=== PATIENT | female | born 1995 | race Caucasian/White ===

== ENCOUNTER 2019-10-08 22:40 | Emergency (ER) | payer OTHER ==
[2019-10-08 23:53] LABS: BASOPHILS % (AUTO) 0.3 %; EOSINOPHILS % (AUTO) 0.1 %; HGB - HEMOGLOBIN 12.7 g/dL (12.0-16.0); LYMPHOCYTES # (AUTO) 1.7 10^3/uL (1.5-3.5); LYMPHOCYTES % (AUTO) 12.3 %; MEAN CORPUSCULAR HEMOGLOBIN 30.1 pg (27.0-31.0); MEAN CORPUSCULAR VOLUME 88.6 fL (81.0-99.0); MEAN PLATELET VOLUME 8.5 fL (7.9-10.8); MONOCYTES # (AUTO) 0.6 10^3/uL (0.0-1.0); MONOCYTES % (AUTO) 4.8 %; NEUTROPHILS % (AUTO) 81.9 %; PLT - PLATELET COUNT 266 10^3/uL (130-450); RED BLOOD COUNT 4.22 10^6/uL (4.20-5.40); RED CELL DISTRIBUTION WIDTH 13.2 % (12.0-15.0); WHITE BLOOD COUNT 13.4 x10^3/uL (4.8-10.8)
--- NOTE | 2019-10-08 23:56 | ED Physician Documentation ---
History of Present Illness - Stated complaint Stated Complaint: N/V - Chief complaint Chief Complaint: Abd Pain - Additonal information Additional information: This is a 23-year-old female who is at 16 weeks who presents with nausea and vomiting. Patient states that she has had some nausea and vomiting during this , but it got better in the second trimester. Today she was feeling overall well in the morning, she had a a ultrasound which showed reportedly normal anatomy and movement as well as a normal heart rate earlier today, she went home and while at home she began developing nausea as well as a headache which was mild and bifrontal, the headache became more severe and radiated towards her back of her head, and she has had multiple episodes of vomiting. She states she does have some epigastric discomfort, but only when she is vomiting. At rest she has no abdominal pain at all. She denies any focal weakness or numbness, No confusion, no speech changes, no facial droop. No diarrhea. After the vomiting she did have some slight blurriness of her vision, but this is now resolved. She denies any double vision, visual cuts, or flashers. She states the headache began gradually and then ramped up, is cu rrently mild in severity. She states it feels like she was hit by the stomach flu. She has not had diarrhea. No fever, no neck stiffness. No sick contacts. Review of Systems Constitutional: denies: Fever Eyes: denies: Loss of vision Nose: denies: Rhinorrhea / runny nose Throat: denies: Sore throat Cardiac: denies: Chest pain / pressure Respiratory: denies: Dyspnea GI: reports: Nausea, Vomiting : denies: Dysuria Neurologic: denies: Focal weakness, Numbness, Difficulty speaking PD PAST MEDICAL HISTORY - Past Medical History Past Medical History: No - Past Surgical History Past Surgical History: Yes General: Cholecystectomy - Present Medications Home Medications: Ambulatory Orders Medication Instructions Recorded Confirmed Ondansetron Odt [Zofran] 4 mg TL Q6H PRN #7 tablet 10/09/19 - Allergies Allergies/Adverse Reactions: Allergies Allergy/AdvReac Type Severity Reaction Status Date / Time No Known Drug Allergies Allergy Verified 10/08/19 22:48 - Social History Does the pt smoke?: No Smoking Status: Never smoker Does the pt drink ETOH?: No Does the pt have substance abuse?: No - Immunizations Immunizations are current?: Yes - POLST Patient has POLST: No PD ED PE NORMAL - Vitals Vital signs reviewed: Yes - General General: Alert and oriented X 3, No acute distress - HEENT HEENT: Atraumatic, PERRL, EOMI, Pharynx benign - Neck Neck: Supple, no meningeal sign - Cardiac Cardiac: No murmur, Other (Tachycardic, regular rhythm) - Respiratory Respiratory: No respiratory distress, Clear bilaterally - Abdomen Abdomen: Normal bowel sounds, Soft, Non tender, Non distended - Derm Derm: Warm and dry - Extremities Extremities: No deformity - Neuro Neuro: Alert and oriented X 3, 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 Funduscopic exam shows crisp optic disks, no papilledema.) - Psych Psych: Normal mood, Normal affect Results - Vitals Vitals: Vital Signs - 24 hr 10/08/19 10/09/19 10/09/19 22:46 00:18 00:47 Heart Rate 134 H 110 H 108 H Respiratory 19 20 16 Rate Blood Pressure 141/86 H 142/86 H 111/62 O2 Saturation 100 100 100 10/09/19 01:55 Heart Rate 100 Respiratory 16 Rate Blood Pressure 129/73 O2 Saturation 100 Oxygen O2 Source Room air - Labs Labs: Laboratory Tests 10/08/19 10/08/19 10/09/19 23:45 23:45 00:12 WBC 13.4 H RBC 4.22 Hgb 12.7 Hct 37.4 MCV 88.6 MCH 30.1 MCHC 34.0 RDW 13.2 Plt Count 266 MPV 8.5 Neut # (Auto) 11.0 H Lymph # (Auto) 1.7 [place] # (Auto) 0.6 Eos # (Auto) 0.0 Baso # (Auto) 0.0 Absolute Nucleated RBC 0.00 Nucleated RBC % 0.0 Sodium 139 Potassium 3.6 Chloride 104 Carbon Dioxide 25 Anion Gap 10.0 BUN 5 L Creatinine 0.5 Estimated GFR (MDRD) 150 Glucose 109 H Calcium 8.9 Total Bilirubin 0.8 AST 19 ALT 24 Alkaline Phosphatase 53 Total Protein 7.0 Albumin 3.7 Globulin 3.3 Albumin/Globulin Ratio 1.1 Lipase 25 Urine Color YELLOW Urine Clarity CLEAR Urine pH 7.5 Ur Specific [place] 1.020 Urine Protein TRACE Urine Glucose (UA) NEGATIVE Urine Ketones >=80 H Urine Occult Blood NEGATIVE Urine Nitrite NEGATIVE Urine Bilirubin NEGATIVE Urine Urobilinogen 0.2 (NORMAL) Ur Leukocyte Esterase NEGATIVE Ur Microscopic Review NOT INDICATED Urine Culture Comments NOT INDICATED PD MEDICAL DECISION MAKING - ED course Complexity details: considered differential (Gastroenteritis, hyperemesis gravidarum, gastritis, viral syndrome, intracranial hemorrhage, central venous thrombosis) ED course: On arrival patient is vomiting, But nontoxic-appearing. She is mildly tachycardic. She has a completely soft and nontender abdomen, and her neurologic exam is also completely normal. IV was inserted, labs were drawn, patient was given Reglan but had persistent nausea, she was given Zofran which completely resolved her symptoms. On repeat evaluation she was feeling well, able to tolerate p.o. fluids, had no headache, continue to have no neurologic symptoms, and had no further nausea or vomiting. Labs show a nonspecific mild leukocytosis which is within the realm of normal during , otherwise unremarkable. UA shows no signs of infection. Initially given her headache and vomiting I did consider central venous thrombosis or intracranial pathology, but given her complete resolution of her symptoms with only antiemetics, as well as her normal neurologic exam, and her funduscopic exam showing no papilledema, I think this is very unlikely at this time. Gastroenteritis is possible, however patient has not had diarrhea. I discussed the diagnostic uncertainty and the importance of returning to the emergency department if she has recurrent or new concerning symptoms, specifically any severe headache or neurologic symptoms, or abdominal pain. I also recommended very close outpatient follow-up. Patient agreed with this plan, and was discharged in the care of her Departure - Departure Disposition: 01 Home, Self Care Clinical Impression: Vomiting Condition: Good Follow-Up: Wendy Thomas ARNP [Primary Care Provider] - Within 1 week Prescriptions: Ondansetron Odt [Zofran] 4 mg TL Q6H PRN #7 tablet PRN Reason: Nausea / Vomiting Comments: You were seen today for vomiting as well as a headache. I am glad that you are feeling better. If you have persistent vomiting despite the Zofran, or if you develop a severe headache, or any other concerning symptoms such as weakness, numbness, vision changes, confusion, seizure, please return to the emergency department. Please also follow-up with your OB or primary care provider.
[2019-10-08] MEDS ORDERED: METOCLOPRAMIDE 10 MG/2 ML VIAL IVP STA (23:57)
[2019-10-09] MEDS ORDERED: SODIUM CHLORIDE 0.9% 1,000 ML IV ONE (00:04)
[2019-10-09 00:05] LABS: ALBUMIN 3.7 g/dL (3.2-5.5); ALBUMIN/GLOBULIN RATIO 1.1 (1.0-2.2); BILIRUBIN,TOTAL 0.8 mg/dL (0.2-1.0); CALCIUM 8.9 mg/dL (8.5-10.3); CREATININE 0.5 mg/dL (0.4-1.0)
[2019-10-09] MEDS ORDERED: ONDANSETRON 4 MG/2 ML VIAL IVP STA (00:18)
[2019-10-09 00:30] LABS: GLUCOSE, URINE (UA) NEGATIVE (NEGATIVE); KETONES,URINE (UA) >=80 mg/dL (NEGATIVE); LEUKOCYTE ESTERASE, URINE NEGATIVE (NEGATIVE); NITRITE,URINE NEGATIVE (NEGATIVE); OCCULT BLOOD,URINE NEGATIVE (NEGATIVE); PH,URINE 7.5 PH (5.0-7.5); PROTEIN,URINE TRACE mg/dL (NEGATIVE); UROBILINOGEN,URINE 0.2 (NORMAL) E.U./dL (NORMAL)
[2019-10-09 00:32] LABS: CLARITY,URINE CLEAR (CLEAR)
[2019-10-09 00:35] LABS: BILIRUBIN,URINE NEGATIVE (NEGATIVE); ICTOTEST,URINE NEGATIVE
[2019-10-09 01:58] VITALS: BP 129/73
== END 2019-10-09 02:00 | disposition home or self-care (01) ==
LOC: ED 22:40
DX: O21.8 Other vomiting complicating pregnancy (principal); O99.89 Other specified diseases and conditions complicating pregnancy, childbirth and the puerperium; R51 Headache; Z3A.16 16 weeks gestation of pregnancy
CPT/HCPCS: 36415; 80053; 81003; 83690; 85025; 96361; 96374; 96375; 99282; 99284; J2765; 81001; 87086

== ENCOUNTER 2020-01-28 18:48 | Emergency (ER) | payer OTHER ==
--- NOTE | 2020-01-28 19:14 | ED Physician Documentation ---
History of Present Illness - Stated complaint Stated Complaint: FEVER, TIGHTNESS IN CHEST - Chief complaint Chief Complaint: General - History obtained from History obtained from: Patient - History of Present Illness Timing: Today Pain level now: 0 Improved by: nothing Worsened by: no exacerbating factors - Additonal information Additional information: patient is 32 weeks , c/o chills and mild, intermittent chest pressure since this morning. Tmax at home was 99.2 Review of Systems Constitutional: reports: Chills. 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 : None HEENT: None Psych: Depression Musculoskeletal: None Derm: None - Past Surgical History Past Surgical History: Yes General: Cholecystectomy - Present Medications Home Medications: Ambulatory Orders Medication Instructions Recorded Confirmed Ondansetron Odt [Zofran] 4 mg TL Q6H PRN #7 tablet 10/09/19 - Allergies Allergies/Adverse Reactions: Allergies Allergy/AdvReac Type Severity Reaction Status Date / Time No Known Drug Allergies Allergy Verified 10/08/19 22:48 - Social History Does the pt smoke?: No Smoking Status: Never smoker Does the pt drink ETOH?: No Does the pt have substance abuse?: No - Immunizations Immunizations are current?: Yes - POLST Patient has POLST: No PD ED PE NORMAL - Vitals Vital signs reviewed: Yes - General General: Alert and oriented X 3, No acute distress, Well developed/nourished - HEENT HEENT: Moist mucous membranes, Other (mild posterior oropharyngeal erythema) - Neck Neck: Supple, no meningeal sign - Cardiac Cardiac: RRR, No murmur - Respiratory Respiratory: No respiratory distress, Clear bilaterally - Abdomen Abdomen: Soft, Non tender Results - Vitals Vitals: Vital Signs - 24 hr 01/28/20 01/28/20 01/28/20 18:50 19:05 21:19 Temperature 37.3 C 37.2 C 37.3 C Heart Rate 123 H 116 H 103 H Respiratory 18 22 18 Rate Blood Pressure 125/71 124/81 H 144/93 H O2 Saturation 98 99 98 Oxygen O2 Source Room air - Labs Labs: Laboratory Tests 01/28/20 01/28/20 19:45 20:15 Influenza A (Rapid) Negative Influenza B (Rapid) Negative Group A Strep Rapid Negative PD MEDICAL DECISION MAKING - ED course Complexity details: reviewed results, re-evaluated patient, considered di fferential, d/w patient Departure - Departure Disposition: 01 Home, Self Care Clinical Impression: Qualifiers: Weeks of gestation: 32 weeks Qualified Code(s): Z3A.32 - 32 weeks gestation of Fatigue Qualifiers: Fatigue type: unspecified Qualified Code(s): R53.83 - Other fatigue Condition: Good Instructions: ED Symptoms No Dx Follow-Up: Wendy Thomas, [facility]ICKLAYER'S ASSISTANT [Primary Care Provider] - Forms: Activity restrictions Discharge Date/Time: 01/28/20 21:19
[2020-01-28 20:03] LABS: RAPID STREP SCREEN Negative (Negative)
[2020-01-28 21:19] VITALS: BP 144/93
== END 2020-01-28 21:19 | disposition home or self-care (01) ==
LOC: ED 18:48
DX: O99.89 Other specified diseases and conditions complicating pregnancy, childbirth and the puerperium (principal); R53.83 Other fatigue; Z3A.32 32 weeks gestation of pregnancy
CPT/HCPCS: 81599; 87070; 87077; 87275; 87276; 87430; 99283; 99284

== ENCOUNTER 2020-02-20 08:00 | Outpatient (CLI) | payer OTHER | END 2020-02-20 23:59 | disposition home or self-care (01) | LOC: LAB.R 08:00 | PROVIDERS: ATTEND Advanced Practice Midwife | DX: Z34.00 Encounter for supervision of normal first pregnancy, unspecified trimester (principal) | CPT/HCPCS: 87797 ==

== ENCOUNTER 2020-02-20 08:00 | Outpatient (CLI) | payer OTHER ==
[2020-02-20 19:52] LABS: CANDIDA GROUP DNA POSITIVE (NEGATIVE); CANDIDA KRUSEI DNA NEGATIVE (NEGATIVE); TRICHOMONAS VAGINALIS DNA NEGATIVE (NEGATIVE)
[2020-02-20 20:59] LABS: TRICHOMONAS VAGINALIS DNA NEGATIVE (NEGATIVE)
== END 2020-02-20 23:59 | disposition home or self-care (01) ==
LOC: LAB.R 08:00
PROVIDERS: ATTEND Advanced Practice Midwife
DX: Z34.00 Encounter for supervision of normal first pregnancy, unspecified trimester (principal)
CPT/HCPCS: 87491; 87591; 87661; 87797; 87801

== ENCOUNTER 2020-03-17 08:13 | Inpatient (IN) | payer OTHER ==
[2020-03-17] MEDS ORDERED: CALCIUM CARBONATE CHEW 500 MG TABLET PO PRN (09:42)
[2020-03-17] MEDS ORDERED: SODIUM CHLORIDE FLUSH 0.9% 10 ML SYRINGE IVP PRN ×2 (09:48→10:08)
[2020-03-17] MEDS ORDERED: OXYTOCIN/SODIUM CHLORIDE 500 ML IV PRN (09:48)
[2020-03-17] MEDS ORDERED: ACETAMINOPHEN 325 MG TABLET PO PRN (09:48)
[2020-03-17] MEDS ORDERED: ONDANSETRON 4 MG/2 ML VIAL IVP PRN (09:48)
[2020-03-17] MEDS ORDERED: AMPICILLIN 2 GM in SODIUM CHLORIDE 0.9% MINIBAG 100 ML IV ONE (09:48)
[2020-03-17] MEDS ORDERED: fentaNYL 100 MCG/2 ML VIAL IVP PRN (09:48)
[2020-03-17] MEDS ORDERED: ONDANSETRON ODT 4 MG TABLET TL PRN (09:48)
[2020-03-17] MEDS ORDERED: miSOPROStoL 200 MCG TABLET PR ONE (09:48)
--- NOTE | 2020-03-17 09:58 | HISTORY & PHYSICAL EXAMINATION ---
Admit History - Visit Reason Visit Reason: Other (24yo G1 at 39 weeks by first trimester scan presents for elective IOL. Denies fluid leak, bleeding, contractions, reports normal activity. No n/v/f/c or dysuria.) - : 1 Parity: 0 Premature: 0 Ectopic: 0 : 0 Care: positive: [facility] Risk/History: positive: Other (H/O cholycystectomy 2017) Complications This : positive: Other (Morbid obesity) Smoking Status: Never smoker - Mother's Labs Mother's Blood Type: positive: A Mother's RH: positive: Positive GBS: positive: Group B Strep Positive Rubella Status: positive: Immune (RPR/HIV/HepB&C NR Varicella immune GC/chlam neg PAP LSIL Quad screen neg Tdap 01/15/2020) Meds/Allgy - Home Medications Home Medications: Ambulatory Orders Medication Instructions Recorded Confirmed Ondansetron Odt [Zofran] 4 mg TL Q6H PRN #7 tablet 10/09/19 - Allergies Allergies/Adverse Reactions: Allergies Allergy/AdvReac Type Severity Reaction Status Date / Time No Known Drug Allergies Allergy Verified 10/08/19 22:48 Physical - Abdominal Exam Vital Signs: VSS afeb Contraction Frequency (min/apart): Rare, mild Contraction Intensity: positive: Mild Uterine Resting Tone: positive: Soft - Monitoring Heart Rate Baseline: 140's, +accels Strip Review: positive: Category I - Presentation Presentation: positive: Vertex (by scan) - Vaginal Exam Membranes: positive: Membranes intact Dilation (in cm): closed Effacement (%): 30% Station: positive: -2 Cervical Position: positive: Posterior - Speculum Exam Speculum Exam Performed: positive: No Plan for Labor - Plan For Labor Plan for Labor: 24yo G1 at 39 weeks admitted for IOL. complicated by morbid obesity Plan CBC, T&S Ampicillin for GBS+ Miso q4h 50mcg PO, place balloon when cervix allows Planning epidural Exam - Exam General: Alert, Oriented x3, Cooperative Lungs: Clear to auscultation, Normal air movement Cardiovascular: Regular rate, No murmurs Abdomen: Soft, No tenderness (obese, gravid) Extremities: Other (1+ bipedal edema) Skin: No rashes Neurological: Normal gait, Normal speech Psych/Mental Status: Mental status NL
[2020-03-17] MEDS ORDERED: OXYTOCIN/SODIUM CHLORIDE 500 ML IV SCH (10:00)
[2020-03-17 10:03] LABS: BASOPHILS % (AUTO) 0.3 %; EOSINOPHILS % (AUTO) 0.4 %; HGB - HEMOGLOBIN 12.2 g/dL (12.0-16.0); LYMPHOCYTES # (AUTO) 1.6 10^3/uL (1.5-3.5); LYMPHOCYTES % (AUTO) 22.1 %; MEAN CORPUSCULAR HEMOGLOBIN 28.8 pg (27.0-31.0); MEAN CORPUSCULAR HGB CONC 32.5 g/dL (32.0-36.0); MEAN CORPUSCULAR VOLUME 88.7 fL (81.0-99.0); MEAN PLATELET VOLUME 8.8 fL (7.9-10.8); MONOCYTES # (AUTO) 0.5 10^3/uL (0.0-1.0); MONOCYTES % (AUTO) 7.3 %; NEUTROPHILS % (AUTO) 69.3 %; PLT - PLATELET COUNT 215 10^3/uL (130-450); RED BLOOD COUNT 4.23 10^6/uL (4.20-5.40); RED CELL DISTRIBUTION WIDTH 15.6 % (12.0-15.0); WHITE BLOOD COUNT 7.1 x10^3/uL (4.8-10.8)
[2020-03-17] MEDS: miSOPROStoL 100 MCG TABLET PO SCH ×3 (10:03→21:27)
--- NOTE | 2020-03-17 10:12 | DISCHARGE SUMMARY ---
"Discharge Summary Admit Date: 03/17/20 Discharging Provider: Renee Doll Code Status: Attempt Resuscitation Condition at Discharge: Good Discharge Disposition: 01 Home, Self Care - DIAGNOSES Admission Diagnoses: at 39 weeks - HPI History of Present Illness: 24yo G1 at 39 weeks by first trimester scan presentd for elective IOL. Denies fluid leak, bleeding, contractions, reports normal activity. No n/v/f/c or dysuria. - CONSULTS | PROCEDURES Procedures: Primary LTCS - HOSPITAL COURSE Hospital Course: Her cervix was unfavorable as expected, miso for ripening was initiated. After the third dose, a cervical balloon was placed; subsequently SROM was noted with copious clear fluid. Contractions increased in intensity; an epidural was placed. Her contractions began to space and pitocin was started. She progressed to 8cm, however the cervix became edematous and there was no further progress, so a primary LTCS was performed. She was delivered of a 3436gm male infant apgars 6/9 on 03/18. The procedure was uncomplicated, EBL 400. Her postop course was complicated only by constipation which was treated with several agents successfully, and candidal rash under pannus near the incision which was successfully treated with clotrimazole cream and by the folds of skin. She received IV iron for her anemia. She required assistance with and was doing well on DC. She is planning Nexplanon for contraception and will f/u in 1-2 weeks. - ALLERGIES Allergies/Adverse Reactions: Allergies Allergy/AdvReac Type Severity Reaction Status Date / Time No Known Drug Allergies Allergy Verified 10/08/19 22:48 - MEDICATIONS Home Medications: Ambulatory Orders Medication Instructions Recorded Confirmed Ondansetron Odt [Zofran Odt] 4 mg TL Q6H PRN #7 tablet 10/09/19 Acetaminophen [Tylenol] 650 mg PO Q6H #50 tablet 03/20/20 Calcium Carbonate [Tums (Calcium 500 mg PO Q6HR PRN #120 tablet 03/20/20 Carbonate 500mg)] Clotrimazole/Betamethasone Crm 1 applic TOP TID #2 tube 03/20/20 [Lotrisone Cream] FLUoxetine [PROzac] 20 mg PO HS #60 capsule 03/20/20 Famotidine [Pepcid] 20 mg PO BID #30 tablet 03/20/20 Ibuprofen [Motrin] 600 mg PO Q6H #40 tablet 03/20/20 oxyCODONE [Roxicodone] 5 mg PO Q4HR PRN #30 tablet 03/20/20 - PHYSICAL EXAM AT DISCHARGE General Appearance: positive: No acute distress, Alert Respiratory: positive: No respiratory distress Abdomen: positive: Non-tender, No distention (Fundus firm, non-tender, below umb ilicus. Rash as noted previously much improved) Extremities: positive: Pedal edema (trace) Neurologic/Psychiatric: positive: Oriented x3, Mood/affect nml - LABS Result Diagrams: 03/19/20 06:15"
[2020-03-17] MEDS ORDERED: LACTATED RINGERS 1,000 ML IV SCH (11:00)
[2020-03-17] MEDS: FAMOTIDINE 20 MG TABLET PO SCH ×2 (12:06→21:12)
--- NOTE | 2020-03-17 13:59 | PROVIDER PROGRESS NOTE ---
Subjective - Prog Note Date Prog Note Date: 03/17/20 Prog Note Time: 13:57 - Subjective Subjective: Feeling cramping w contractions. No pain or significant pressure. VSS afeb Category 1 tracing Exam deferred Contractions <1 min duration, mild, q2-5 A/P Stable. Continue with miso #2. Start ampicillin Objective - Lab Results Fish Bones: 03/17/20 09:45 Other Labs: Lab Results x24hrs 03/17/20 03/17/20 Range/Units 09:45 09:45 WBC 7.1 (4.8-10.8) x10^3/uL RBC 4.23 (4.20-5.40) 10^6/uL Hgb 12.2 (12.0-16.0) g/dL Hct 37.5 (37.0-47.0) % MCV 88.7 (81.0-99.0) fL MCH 28.8 (27.0-31.0) pg MCHC 32.5 (32.0-36.0) g/dL RDW 15.6 H (12.0-15.0) % Plt Count 215 (130-450) 10^3/uL MPV 8.8 (7.9-10.8) fL Neut # (Auto) 5.0 (1.5-6.6) 10^3/uL Lymph # (Auto) 1.6 (1.5-3.5) 10^3/uL [place] # (Auto) 0.5 (0.0-1.0) 10^3/uL Eos # (Auto) 0.0 (0.0-0.7) 10^3/uL Baso # (Auto) 0.0 (0.0-0.1) 10^3/uL Absolute Nucleated RBC 0.00 x10^3/uL Nucleated RBC % 0.0 /100WBC Blood Type A POSITIVE Antibody Screen NEGATIVE
[2020-03-17] MEDS: LACTATED RINGERS 1,000 ML IV SCH (14:16)
[2020-03-17] MEDS: SODIUM CHLORIDE FLUSH 0.9% 10 ML SYRINGE IVP SCH (14:16)
[2020-03-17] MEDS ORDERED: SODIUM CHLORIDE FLUSH 0.9% 10 ML SYRINGE IVP SCH (17:00)
[2020-03-17] MEDS: AMPICILLIN 1 GM in SODIUM CHLORIDE 0.9% MINIBAG 100 ML IV SCH ×2 (18:07→22:36)
[2020-03-17] MEDS: FLUoxetine 10 MG CAPSULE PO SCH (21:13)
--- NOTE | 2020-03-17 23:14 | PROVIDER PROGRESS NOTE ---
Subjective - Prog Note Date Prog Note Date: 03/17/20 Prog Note Time: 23:10 - Subjective Subjective: Feeling contractions more since miso #3 placed. Wants to try for balloon placement Contractions q2-5 VSS afeb Category 1 VE/ FT/50%/-2 Cook catheter placed. 60cc in uterine balloon, 40cc in vaginal balloon. Immediately after placement, SROM of copious clear fluid Bedside scan shows head well applied to cervix. Single variable decel following rupture with spontaneous recovery; tracing category 1 after that. A/P Will start pitocin when able (4hrs after last miso) Objective - Vital Signs/Intake & Output Intake & Output: Intake & Output 03/14/20 03/15/20 03/16/20 03/17/20 23:59 23:59 23:59 23:59 Intake Total 200 Balance 200 - Lab Results Fish Bones: 03/17/20 09:45 Other Labs: Lab Results x24hrs 03/17/20 03/17/20 Range/Units 09:45 09:45 WBC 7.1 (4.8-10.8) x10^3/uL RBC 4.23 (4.20-5.40) 10^6/uL Hgb 12.2 (12.0-16.0) g/dL Hct 37.5 (37.0-47.0) % MCV 88.7 (81.0-99.0) fL MCH 28.8 (27.0-31.0) pg MCHC 32.5 (32.0-36.0) g/dL RDW 15.6 H (12.0-15.0) % Plt Count 215 (130-450) 10^3/uL MPV 8.8 (7.9-10.8) fL Neut # (Auto) 5.0 (1.5-6.6) 10^3/uL Lymph # (Auto) 1.6 (1.5-3.5) 10^3/uL [place] # (Auto) 0.5 (0.0-1.0) 10^3/uL Eos # (Auto) 0.0 (0.0-0.7) 10^3/uL Baso # (Auto) 0.0 (0.0-0.1) 10^3/uL Absolute Nucleated RBC 0.00 x10^3/uL Nucleated RBC % 0.0 /100WBC Blood Type A POSITIVE Antibody Screen NEGATIVE
[2020-03-17] MEDS ORDERED: ROPIVACAINE 0.2% 200 MG/100 ML BAG EP ONE (23:36)
[2020-03-18] MEDS ORDERED: LIDOCAINE-MPF 1% 30 ML VIAL ONE (00:04)
[2020-03-18] MEDS ORDERED: NALOXONE 0.4 MG/ML VIAL IVP PRN (00:50)
[2020-03-18] MEDS ORDERED: ONDANSETRON 4 MG/2 ML VIAL IVP PRN (00:50)
[2020-03-18] MEDS ORDERED: LACTATED RINGERS 500 ML IV ONE (00:50)
[2020-03-18] MEDS ORDERED: ePHEDrine 50 MG/ML VIAL IVP PRN (00:50)
[2020-03-18] MEDS ORDERED: NALBUPHINE 10 MG/ML AMP IVP PRN (00:50)
[2020-03-18] MEDS ORDERED: ROPIVACAINE 0.2% 200 MG/100 ML BAG EP PRN (00:50)
[2020-03-18] MEDS ORDERED: diphenhydrAMINE INJ 50 MG/ML VIAL IVP PRN (00:50)
--- NOTE | 2020-03-18 00:50 | ANESTHESIA ---
Pre-Anesthesia VS, & Labs - Diagnosis active labor IUP - Procedure KATARINA Height 5 ft 1 in Weight (kg) 116.12 kg Body Mass Index 49.2 - Is Patient ?: Yes - Lab Results Current Lab Results: Laboratory Tests 03/17/20 09:45: Blood Type A POSITIVE, Antibody Screen NEGATIVE 03/17/20 09:45: WBC 7.1, RBC 4.23, Hgb 12.2, Hct 37.5, MCV 88.7, MCH 28.8, MCHC 32.5, RDW 15.6 H, Plt Count 215, MPV 8.8, Neut # (Auto) 5.0, Lymph # (Auto) 1.6, [place] # (Auto) 0.5, Eos # (Auto) 0.0, Baso # (Auto) 0.0, Absolute Nucleated RBC 0.00, Nucleated RBC % 0.0 Fish Bones: 03/17/20 09:45 Home Medications and Allergies Active Medications Acetaminophen (Tylenol) 650 mg PO Q6H PRN PRN Reason: Pain or Fever Calcium Carbonate/Glycine (Tums) 500 mg PO Q6HR PRN PRN Reason: Heartburn Famotidine (Pepcid) 20 mg PO BID [facility] Last Admin: 03/17/20 21:12 Dose: 20 mg Fentanyl (Fentanyl) 50 mcg IVP Q1H PRN PRN Reason: PAIN Last Admin: 03/17/20 22:29 Dose: 50 mcg Fluoxetine HCl (Prozac) 20 mg PO HS [facility] Last Admin: 03/17/20 21:13 Dose: 20 mg Ampicillin Sodium 1 gm/ Sodium (Chloride) 100 mls @ 200 mls/hr IV Q4H [facility] Last Infusion: 03/17/20 22:50 Dose: Infused Lactated Ringer's (Lr) 1,000 mls @ 100 mls/hr IV .Q10H [facility] Last Admin: 03/17/20 14:16 Dose: 100 mls/hr Oxytocin/Sodium Chloride (Pitocin/Sodium Chloride) 500 mls @ 2 mls/hr IV TITR [place]O; Protocol Oxytocin/Sodium Chloride (Pitocin/Sodium Chloride) 500 mls @ 999 mls/hr IV PRN PRN; Protocol PRN Reason: POST- HEMORR PREVENTION Misoprostol (Cytotec) 50 mcg PO Q4HR [facility] Last Admin: 03/17/20 21:27 Dose: 50 mcg Ondansetron HCl (Zofran Inj) 4 mg IVP Q4HR PRN PRN Reason: Nausea / Vomiting Last Admin: 03/17/20 11:12 Dose: 4 mg Ondansetron HCl (Zofran Odt) 4 mg TL Q4HR PRN PRN Reason: Nausea / Vomiting Sodium Chloride (Normal Saline Flush 0.9%) 10 ml IVP 0100,0900,1700 [facility] Last Admin: 03/17/20 14:16 Dose: 10 ml Sodium Chloride (Normal Saline Flush 0.9%) 10 ml IVP PRN PRN PRN Reason: NEEDED PER PROVIDER ORDERS Allergies/Adverse Reactions: Allergies Allergy/AdvReac Type Severity Reaction Status Date / Time No Known Drug Allergies Allergy Verified 10/08/19 22:48 Anes History & Medical History - Anesthetic History Anesthesia Complications: reports: No previous complications Family history of Anesthesia Complications: Denies Family history of Malignant Hyperthermia: Denies - Medical History Cardiovascular: reports: None Pulmonary: reports: None Gastrointestinal: reports: GERD Urinary: reports: None Neuro: reports: None Musculoskeletal: reports: None Endocrine/Autoimmune: reports: None Blood Disorders: reports: None Skin: reports: None Smoking Status: Never smoker Psychosocial: reports: No issues indicated - Surgical History General: Cholecystectomy - Obstetrical History : 1 Parity: 0 Events: positive: Other (H/O cholycystectomy 2018) Complications: positive: Other (Morbid obesity) Exam General: Alert, Oriented x3, Cooperative, No acute distress Dental: WNL Mouth Openin Fingerbreadth Neck Mobility: Normal Mallampati classification: III Thyromental Distance: less than 4 cm Respiratory: Lungs clear, Normal breath sounds, No respiratory distress, No accessory muscle use Cardiovascular: Regular rate, Normal S1, Normal S2, No murmurs Abdomen: Normal bowel sounds, Soft, No tenderness, No hepatospenomegaly, No masses Extremities: No clubbing, No cyanosis, No edema, Normal pulses, No tenderness/swelling Neurological: Normal gait, Normal speech, Strength at 5/5 X4 ext, Normal tone, Sensation intact, Cranial nerves 3-12 NL, Reflexes 2+ Mental/Cognitive Status: Alert/Oriented X3, Normal for patient Cognitive Status: Within normal limits Plan Anesthesia Type: Epidural Consent for Procedure(s) Verified and Reviewed: Yes Code Status: Attempt Resuscitation ASA classification: 2-Mild systemic disease Is this case an emergency?: No
--- NOTE | 2020-03-18 01:03 | PROVIDER PROGRESS NOTE ---
Subjective - Prog Note Date Prog Note Date: 03/18/20 Prog Note Time: 01:01 - Subjective Subjective: Very comfortable with epidural in place. Hypotension required neosynephrine x1 Otherwise VSS afeb Category 1 tracing, contractions q2-4 Gallagher placed for 60cc (voided prior to epidural placement) IVF continue at 200cc/hr VE 4cm/90%/-2 A/P Comfortable. Very good progress. Continue expectant mgmt for now. Pitocin if contractions space out Objective - Vital Signs/Intake & Output Intake & Output: Intake & Output 03/15/20 03/16/20 03/17/20 03/18/20 23:59 23:59 23:59 23:59 Intake Total 300 Balance 300 - Lab Results Fish Bones: 03/17/20 09:45 Other Labs: Lab Results x24hrs 03/17/20 03/17/20 Range/Units 09:45 09:45 WBC 7.1 (4.8-10.8) x10^3/uL RBC 4.23 (4.20-5.40) 10^6/uL Hgb 12.2 (12.0-16.0) g/dL Hct 37.5 (37.0-47.0) % MCV 88.7 (81.0-99.0) fL MCH 28.8 (27.0-31.0) pg MCHC 32.5 (32.0-36.0) g/dL RDW 15.6 H (12.0-15.0) % Plt Count 215 (130-450) 10^3/uL MPV 8.8 (7.9-10.8) fL Neut # (Auto) 5.0 (1.5-6.6) 10^3/uL Lymph # (Auto) 1.6 (1.5-3.5) 10^3/uL [place] # (Auto) 0.5 (0.0-1.0) 10^3/uL Eos # (Auto) 0.0 (0.0-0.7) 10^3/uL Baso # (Auto) 0.0 (0.0-0.1) 10^3/uL Absolute Nucleated RBC 0.00 x10^3/uL Nucleated RBC % 0.0 /100WBC Blood Type A POSITIVE Antibody Screen NEGATIVE
[2020-03-18] MEDS: LACTATED RINGERS 1,000 ML IV SCH ×3 (01:59→10:08)
--- NOTE | 2020-03-18 01:59 | PROVIDER PROGRESS NOTE ---
Subjective - Subjective Subjective: Pt feeling contractions again, very uncomfortable. Self bolus not effective. VSS afeb Cath draining clear urine, in normal position. Balloon drained with no improvement, refilled without replacing catheter. VE deferred Anesthesia called watson to assess. Objective - Vital Signs/Intake & Output Intake & Output: Intake & Output 03/15/20 03/16/20 03/17/20 03/18/20 23:59 23:59 23:59 23:59 Intake Total 300 Balance 300 - Lab Results Fish Bones: 03/17/20 09:45 Other Labs: Lab Results x24hrs 03/17/20 03/17/20 Range/Units 09:45 09:45 WBC 7.1 (4.8-10.8) x10^3/uL RBC 4.23 (4.20-5.40) 10^6/uL Hgb 12.2 (12.0-16.0) g/dL Hct 37.5 (37.0-47.0) % MCV 88.7 (81.0-99.0) fL MCH 28.8 (27.0-31.0) pg MCHC 32.5 (32.0-36.0) g/dL RDW 15.6 H (12.0-15.0) % Plt Count 215 (130-450) 10^3/uL MPV 8.8 (7.9-10.8) fL Neut # (Auto) 5.0 (1.5-6.6) 10^3/uL Lymph # (Auto) 1.6 (1.5-3.5) 10^3/uL Person # (Auto) 0.5 (0.0-1.0) 10^3/uL Eos # (Auto) 0.0 (0.0-0.7) 10^3/uL Baso # (Auto) 0.0 (0.0-0.1) 10^3/uL Absolute Nucleated RBC 0.00 x10^3/uL Nucleated RBC % 0.0 /100WBC Blood Type A POSITIVE Antibody Screen NEGATIVE
--- NOTE | 2020-03-18 02:16 | CONSULTATION NOTE ---
Consultation Report: I was called by the RN reporting that patient is having increasing discomfort. Came into check the patient. She has a bilateral sensory level of t8. Her main complaint is " pain with the "catheter" referring to her urinary catheter.I gave her a bolus of about 4 ml from the pump and changed her setting from 8ml to 10ml from every 50 minutes to every 45 minutes. I am having her sit head up a little more. If she continues to have this catheter related discomfort, the nursing team will replace the urinary catheter. Her vital signs are stable.
[2020-03-18] MEDS: AMPICILLIN 1 GM in SODIUM CHLORIDE 0.9% MINIBAG 100 ML IV SCH ×3 (02:27→07:22)
--- NOTE | 2020-03-18 02:44 | PROVIDER PROGRESS NOTE ---
Subjective - Subjective Subjective: Much better. BP stable Catheter draining clear urine Cat 1 tracing. Ctx q2-4 Continue expectant mgmt for now Objective - Vital Signs/Intake & Output Intake & Output: Intake & Output 03/15/20 03/16/20 03/17/20 03/18/20 23:59 23:59 23:59 23:59 Intake Total 300 1000 Balance 300 1000 - Lab Results Fish Bones: 03/17/20 09:45 Other Labs: Lab Results x24hrs 03/17/20 03/17/20 Range/Units 09:45 09:45 WBC 7.1 (4.8-10.8) x10^3/uL RBC 4.23 (4.20-5.40) 10^6/uL Hgb 12.2 (12.0-16.0) g/dL Hct 37.5 (37.0-47.0) % MCV 88.7 (81.0-99.0) fL MCH 28.8 (27.0-31.0) pg MCHC 32.5 (32.0-36.0) g/dL RDW 15.6 H (12.0-15.0) % Plt Count 215 (130-450) 10^3/uL MPV 8.8 (7.9-10.8) fL Neut # (Auto) 5.0 (1.5-6.6) 10^3/uL Lymph # (Auto) 1.6 (1.5-3.5) 10^3/uL [place] # (Auto) 0.5 (0.0-1.0) 10^3/uL Eos # (Auto) 0.0 (0.0-0.7) 10^3/uL Baso # (Auto) 0.0 (0.0-0.1) 10^3/uL Absolute Nucleated RBC 0.00 x10^3/uL Nucleated RBC % 0.0 /100WBC Blood Type A POSITIVE Antibody Screen NEGATIVE
[2020-03-18] MEDS: SODIUM CHLORIDE FLUSH 0.9% 10 ML SYRINGE IVP SCH ×3 (07:21→15:07)
[2020-03-18] MEDS ORDERED: LIDOCAINE-MPF 1% 5 ML VIAL ONE (08:12)
[2020-03-18] MEDS: miSOPROStoL 100 MCG TABLET PO SCH (08:27)
--- NOTE | 2020-03-18 08:27 | PROVIDER PROGRESS NOTE ---
Subjective - Prog Note Date Prog Note Date: 03/18/20 Prog Note Time: 07:50 - Subjective Subjective: Pt feeling a lot of pressure VSS afeb Urine output adequate, a bit more concentrated Pit at 10mu/min, contractions q2-4 Category 1 with few very small early decels VE 8cm/80%/0 Good progress, and now in active labor Exam concerning for further progress as head not well applied, cervix not fully effaced. Phenergan for high level of anxiety Continue pitocin for now Fluid bolus Objective - Vital Signs/Intake & Output Intake & Output: Intake & Output 03/15/20 03/16/20 03/17/20 03/18/20 23:59 23:59 23:59 23:59 Intake Total 300 1644.950 Output Total 275 Balance 300 1369.950 - Lab Results Fish Bones: 03/17/20 09:45 Other Labs: Lab Results x24hrs 03/17/20 03/17/20 Range/Units 09:45 09:45 WBC 7.1 (4.8-10.8) x10^3/uL RBC 4.23 (4.20-5.40) 10^6/uL Hgb 12.2 (12.0-16.0) g/dL Hct 37.5 (37.0-47.0) % MCV 88.7 (81.0-99.0) fL MCH 28.8 (27.0-31.0) pg MCHC 32.5 (32.0-36.0) g/dL RDW 15.6 H (12.0-15.0) % Plt Count 215 (130-450) 10^3/uL MPV 8.8 (7.9-10.8) fL Neut # (Auto) 5.0 (1.5-6.6) 10^3/uL Lymph # (Auto) 1.6 (1.5-3.5) 10^3/uL [place] # (Auto) 0.5 (0.0-1.0) 10^3/uL Eos # (Auto) 0.0 (0.0-0.7) 10^3/uL Baso # (Auto) 0.0 (0.0-0.1) 10^3/uL Absolute Nucleated RBC 0.00 x10^3/uL Nucleated RBC % 0.0 /100WBC Blood Type A POSITIVE Antibody Screen NEGATIVE
[2020-03-18] MEDS: FAMOTIDINE 20 MG TABLET PO SCH ×2 (09:00→20:48)
[2020-03-18] MEDS ORDERED: AZITHROMYCIN INJ 500 MG in SODIUM CHLORIDE 0.9% 250 ML IV SCH (09:57)
[2020-03-18] MEDS ORDERED: ceFAZolin 3 GM in SODIUM CHLORIDE 0.9% 100ML 100 ML IV SCH (09:58)
--- NOTE | 2020-03-18 10:10 | PROVIDER PROGRESS NOTE ---
Subjective - Prog Note Date Prog Note Date: 03/18/20 Prog Note Time: 10:08 - Subjective Subjective: Very uncomfortable. VSS afeb Cat 2 secondary to intermittent small variable decels. +accels present Exam unchanged. A/P Arrest of labor. Pt agrees to proceed to . Azithromycin and ancef ordered, abdomen, groin washed w hibiclens Pitocin turned off. OR notified. Objective - Vital Signs/Intake & Output Intake & Output: Intake & Output 03/15/20 03/16/20 03/17/20 03/18/20 23:59 23:59 23:59 23:59 Intake Total 300 1644.950 Output Total 275 Balance 300 1369.950 - Lab Results Fish Bones: 03/17/20 09:45 Other Labs: Lab Results x24hrs 03/17/20 Range/Units 09:45 Blood Type A POSITIVE Antibody Screen NEGATIVE
[2020-03-18] MEDS ORDERED: LACTATED RINGERS 1,000 ML IV ONE ×2 (11:54→11:55)
[2020-03-18] MEDS ORDERED: SODIUM CHLORIDE FLUSH 0.9% 10 ML SYRINGE IVP PRN (11:58)
[2020-03-18] MEDS ORDERED: LACTATED RINGERS 1,000 ML IV SCH (12:00)
[2020-03-18] MEDS ORDERED: ACETAMINOPHEN 500 MG TABLET PO SCH (12:00)
--- NOTE | 2020-03-18 12:12 | DELIVERY NOTE ---
Delivery Note - Labor Labor: positive: Induced by oxytocin - Delivery Method Delivery Method: positive: Primary - Cervical Ripening Method Cervical Ripening Method: positive: Balloon device, Misoprostil - Presentation Presentation: positive: Vertex, PARVIN - left occiput anterior - Nuchal Cord Nuchal Cord: positive: None - Anesthetic Anesthetic Type: - Amniotic Fluid Description Amniotic Fluid Description: positive: Clear - Delivery Outcome Delivery Outcome: positive: Livebirth - [place]: positive: Placed in direct skin contact with mother sex: positive: Male - Cord Cord: positive: 3 vessels - Placenta Placenta: positive: Intact, Expressed - Estimated Blood Loss Estimated Blood Loss (in cc): 400 - Post Delivery Events Post Delivery Events: positive: No post delivery events - Delivery Comments (Free Text/Narrative) Delivery Comments (Free Text/Narrative): Delivery of 3436gm male apgars 6/9 from PARVIN by primary LTCS on 03/18 at 11:04. Placenta expressed intact with velamentous, marginally inserted 3 vessel cord. Spontaneous cry. Normal uterus, tubes, ovaries.
--- NOTE | 2020-03-18 12:29 | OPERATIVE REPORT ---
Operative Report - General Admit Date: 03/17/20 Procedure Date: 03/18/20 Planned Procedure: Primary LTCS Pre-Op Diagnosis: Arrest of labor Procedure Performed: Primary LTCS Post Op Diagnosis: Same - Procedure Note Primary Surgeon: Renee Doll Secondary Surgeon: Marcos Osuna Anesthesia Provider: Damian Anesthesia Technique: Epidural Pathology: Cord blood IV Fluids (mL): 1,200 Estimated Blood Loss (mL): 400 Urine Output (mL): 100 ([place] tinged prior to start of case) Indications: Arrest of labor Findings: Delivery of 3436gm male apgars 6/9 from PARVIN by primary LTCS on 03/18 at 11:04. Placenta expressed intact with velamentous, marginally inserted 3 vessel cord. Spontaneous cry. Normal uterus, tubes, ovaries. Complications: none - Other Other Information/Narrative: Patient was brought to the operating room where epidural was found to be adequ ate. She was given Azithromycin and ancef and prepped and draped in usual fashion including vaginal prep. The romero was draining pink tinged urine. Her pannus was taped up and iodoform was placed under the drape. A low transverse incision was made which was carried to fascia with electrocautery. The fascia was incised and the incision sharply extended laterally. The rectus was bluntly divided and the peritoneum elevated and sharply entered. The incision was sharply extended with direct visualization of the bladder. The Adelso retractor was placed. The lower uterine segment was carefully incised and the incision extended bluntly in a cephalo-caudad direction. The fetus was noted to be unengaged at the BPD and was easily elevated into the incision and delivered at 11:04. This was a 3436gm male infant apgars 6/9, spontaneous cry at delivery. The cord was clamped and cut and he was handed off the field. The placenta was expressed intact with velamentous, marginally inserted 3 vessel cord. The uterus was closed first with 0-vicryl in a running locked fashion followed by the same suture placed in a horizontal imbricating fashion. Good hemostasis was noted. The adnexae were noted to be normal. The Adelso was removed. The rectus was reapproximated with two figure of eight sutures of 2-0 vicryl. No bleeding was noted. The fascia was closed with 0 vicryl in a running locked fashion starting at both ends and tied in the middle. The subcutaneous layer was closed with 2-0 vicryl in a running fashion followed by a subcuticular layer or 4-0 monocryl. The skin was closed with Dermabond and steristrips. I was present and performed the entire procedure, Dr Osuna performed essential assistance throughout.
[2020-03-18] MEDS: KETOROLAC 30 MG/ML VIAL IVP SCH ×2 (13:22→17:32)
[2020-03-18] MEDS: oxyCODONE 5 MG TABLET PO PRN ×3 (13:39→21:00)
--- NOTE | 2020-03-18 13:49 | PROVIDER PROGRESS NOTE ---
Subjective - Prog Note Date Prog Note Date: 03/18/20 Prog Note Time: 13:46 - Subjective Subjective: Copmfortable, no complaints. Pain well controlled, minimal lochia. VSS afeb Urine clear, 450cc since return from PACU about 1.5 hours ago Abd soft, non-tender. Fundus firm at umbilicus. Incision D&I without erythema or induration. A/P Stable. Continue routine postop care. Lovenox to start tonight. Ambulate. Heplock IV when taking adequate PO. Objective - Vital Signs/Intake & Output Vital Signs: Vital Signs x48h Temp Pulse Pulse Resp BP BP Pulse Ox 03/18/20 13:33 90 16 111/65 96 03/18/20 13:09 92 16 101/47 L 96 03/18/20 12:25 98.4 F 86 18 101/62 97 03/18/20 12:15 97.7 F 88 16 99/56 L 98 03/18/20 12:05 97.7 F 87 16 100/61 98 03/18/20 12:00 97.7 F 88 18 111/61 97 03/18/20 11:55 97.7 F 87 18 108/57 L 95 03/18/20 11:50 97.7 F 100 18 104/57 L 95 Intake & Output: Intake & Output 03/15/20 03/16/20 03/17/20 03/18/20 23:59 23:59 23:59 23:59 Intake Total 300 3136.667 Output Total 625 Balance 300 2511.667 - Lab Results Fish Bones: 03/17/20 09:45
[2020-03-18] MEDS ORDERED: SIMETHICONE CHEW 80 MG TABLET PO SCH (14:00)
[2020-03-18] MEDS ORDERED: SODIUM CHLORIDE FLUSH 0.9% 10 ML SYRINGE IVP SCH (17:00)
[2020-03-18] MEDS: ACETAMINOPHEN 325 MG TABLET PO SCH (18:18)
[2020-03-18] MEDS: DOCUSATE SODIUM 100 MG CAPSULE PO SCH (20:47)
[2020-03-18] MEDS: ENOXAPARIN 40 MG/0.4 ML SYRINGE SUBQ SCH (20:47)
[2020-03-18] MEDS: FLUoxetine 10 MG CAPSULE PO SCH (20:48)
[2020-03-19] MEDS: KETOROLAC 30 MG/ML VIAL IVP SCH ×4 (00:03→18:06)
[2020-03-19] MEDS: ACETAMINOPHEN 325 MG TABLET PO SCH ×5 (00:03→23:34)
[2020-03-19] MEDS: FAMOTIDINE 20 MG TABLET PO SCH ×2 (09:14→20:49)
[2020-03-19] MEDS: ENOXAPARIN 40 MG/0.4 ML SYRINGE SUBQ SCH ×2 (09:14→20:48)
[2020-03-19] MEDS: DOCUSATE SODIUM 100 MG CAPSULE PO SCH ×2 (09:14→20:49)
--- NOTE | 2020-03-19 10:04 | PROVIDER PROGRESS NOTE ---
Subjective - Prog Note Date Prog Note Date: 03/19/20 Prog Note Time: 10:02 - Subjective Subjective: POD 1 Feeling very well. Ambulating, voiding, eating. No n/v. Minimal lochia, pain well controlled. with help. VSS afeb Abd soft, non-tender. Fundus firm below umbilicus. Incision D&I without erythema or induration. A/P Stable. Doing very well. Continue current plan. Expect DC home tomorrow. Objective - Vital Signs/Intake & Output Vital Signs: Vital Signs x48h Temp Pulse Resp BP Pulse Ox 03/19/20 09:00 20 03/19/20 08:00 98.8 F 90 18 117/68 96 03/19/20 05:10 20 03/19/20 03:55 98.4 F 93 20 98/56 L 95 Intake & Output: Intake & Output 03/16/20 03/17/20 03/18/20 03/19/20 23:59 23:59 23:59 23:59 Intake Total 300 4136.667 980 Output Total 1750 585 Balance 300 2386.667 395 - Lab Results Fish Bones: 03/19/20 06:15 Other Labs: Lab Results x24hrs 03/19/20 03/19/20 Range/Units 06:15 06:15 Hgb 11.1 L (12.0-16.0) g/dL Blood Type Recheck A POSITIVE
[2020-03-19] MEDS ORDERED: fentaNYL 100 MCG/2 ML VIAL IVP ONE (10:31)
[2020-03-19] MEDS ORDERED: KETOROLAC 30 MG/ML VIAL IVP ONE (10:31)
[2020-03-19] MEDS ORDERED: ACETAMINOPHEN 1,000 MG/100 ML 100 ML IV ONE (10:31)
[2020-03-19] MEDS ORDERED: ROPIVACAINE 0.5% PF 20 ML VIAL EPI ONE (10:31)
[2020-03-19] MEDS ORDERED: ONDANSETRON 4 MG/2 ML VIAL IVP ONE (10:31)
[2020-03-19] MEDS ORDERED: METOCLOPRAMIDE 10 MG/2 ML VIAL IVP ONE (10:31)
[2020-03-19] MEDS ORDERED: LIDOCAINE-MPF 2% 5 ML VIAL IM ONE (10:31)
[2020-03-19] MEDS ORDERED: ePHEDrine 50 MG/ML VIAL IVP ONE (10:31)
[2020-03-19] MEDS: FLUoxetine 10 MG CAPSULE PO SCH (20:49)
[2020-03-19] MEDS ORDERED: ENOXAPARIN 60 MG/0.6 ML SYRINGE SUBQ SCH (21:00)
[2020-03-19] MEDS: IBUPROFEN 600 MG TABLET PO SCH (23:34)
[2020-03-20] MEDS: oxyCODONE 5 MG TABLET PO PRN ×2 (04:21→11:39)
[2020-03-20] MEDS: IBUPROFEN 600 MG TABLET PO SCH ×4 (05:47→23:34)
[2020-03-20] MEDS: ACETAMINOPHEN 325 MG TABLET PO SCH ×4 (05:48→23:34)
--- NOTE | 2020-03-20 09:00 | PROVIDER PROGRESS NOTE ---
Subjective - Prog Note Date Prog Note Date: 03/20/20 Prog Note Time: 08:52 - Subjective Subjective: POD 2 Feeling a little burning in area of skin under pannus. Otherwise no complaints. a bit better although milk not in yet. Minimal lochia. Ambulating, edwin reg diet, voiding. Increased pain when missed doses of oxy yesterday, now resolved, pain well controlled. VSS afebrile Abd soft, completely non-tender, fundus firm well below umbilicus. Intertriginous area below pannus with well circumscribed area of erythema more laterally than around incision itself. No induration, no DC. Abd pad layed in over incision and this area less red than where it is skin to skin. A/P Pain secondary to inadequate dosing; now well controlled. Afebrile, non-tender and distribution of erythema as noted more c/w fungal infection of skin under pannus than wound cellulitis. Will give clotrimazole/HC cream and place abds over the whole area to keep skin surfaces sepaerate and then reevaluate. Continue to follow vitals/temps. Continue lovenox and SCDs while in bed. Continue support. Expect DC tomorrow if stable. Objective - Vital Signs/Intake & Output Vital Signs: Vital Signs x48h Temp Pulse Resp BP Pulse Ox 03/20/20 08:10 97.9 F 72 20 107/67 98 03/20/20 04:31 98.1 F 82 20 114/66 99 Intake & Output: Intake & Output 03/17/20 03/18/20 03/19/20 03/20/20 23:59 23:59 23:59 23:59 Intake Total 300 4136.667 980 Output Total 1750 985 Balance 300 2386.667 -5 - Lab Results Fish Bones: 03/19/20 06:15
[2020-03-20] MEDS: DOCUSATE SODIUM 100 MG CAPSULE PO SCH ×2 (09:14→21:34)
[2020-03-20] MEDS: ENOXAPARIN 40 MG/0.4 ML SYRINGE SUBQ SCH ×2 (09:14→21:34)
[2020-03-20] MEDS: FAMOTIDINE 20 MG TABLET PO SCH ×2 (09:14→21:34)
[2020-03-20] MEDS: CLOTRIMAZOLE/BETAMETHASONE 45 GM TUBE TOP SCH (09:44)
--- NOTE | 2020-03-20 12:35 | Discharge Plan ---
Discharge Plan Problem Reviewed?: Yes Disposition: Home, Self Care Condition: Good Prescriptions: oxyCODONE [Roxicodone] 5 mg PO Q4HR PRN #30 tablet PRN Reason: Pain Clotrimazole/Betamethasone Crm [Lotrisone Cream] 1 applic TOP TID #2 tube Ibuprofen [Motrin] 600 mg PO Q6H #40 tablet Diet: Regular Activity Restrictions: Pelvic rest for 6 weeks, no lifting >10lbs for 8 weeks Shower Restrictions: No Driving Restrictions: No Additional Instructions or Follow Up instructions: No Smoking: If you smoke, Please STOP! Call for help. Follow-up with: Wendy Thomas ARNP [Primary Care Provider] -
[2020-03-20] MEDS ORDERED: MAGNESIUM HYDROXIDE 2,400 MG/30 ML UDC PO PRN (18:36)
--- NOTE | 2020-03-20 18:38 | PROVIDER PROGRESS NOTE ---
Subjective - Prog Note Date Prog Note Date: 03/20/20 Prog Note Time: 18:37 - Subjective Subjective: Feeling much better. VSS afeb Abd soft, rash significantly improved. Incision healing well. A/P Stable. Doing well. Expect DC home in AM Objective - Vital Signs/Intake & Output Vital Signs: Vital Signs x48h Temp Pulse Resp BP Pulse Ox 03/20/20 16:50 99.0 F 85 18 117/64 97 03/20/20 13:03 98.6 F 82 18 107/60 97 Intake & Output: Intake & Output 03/17/20 03/18/20 03/19/20 03/20/20 23:59 23:59 23:59 23:59 Intake Total 300 4136.667 980 Output Total 1750 985 Balance 300 2386.667 -5 - Lab Results Fish Bones: 03/19/20 06:15
[2020-03-20] MEDS ORDERED: BISACODYL 10 MG SUPP PR PRN (21:25)
[2020-03-20] MEDS: FLUoxetine 10 MG CAPSULE PO SCH (21:34)
[2020-03-21] MEDS: ENOXAPARIN 40 MG/0.4 ML SYRINGE SUBQ SCH (07:56)
[2020-03-21] MEDS: IBUPROFEN 600 MG TABLET PO SCH ×2 (07:57→15:15)
[2020-03-21] MEDS: ACETAMINOPHEN 325 MG TABLET PO SCH ×2 (07:57→15:16)
[2020-03-21] MEDS: FAMOTIDINE 20 MG TABLET PO SCH (07:57)
[2020-03-21] MEDS: DOCUSATE SODIUM 100 MG CAPSULE PO SCH (07:57)
--- NOTE | 2020-03-21 07:59 | PROVIDER PROGRESS NOTE ---
Subjective - Prog Note Date Prog Note Date: 03/21/20 Prog Note Time: 07:56 - Subjective Subjective: POD 3 Feeling very well, wants to go home. BM last night. Ambulating, reg diet, scant lochia. Itching under pannus resolved. Pain well controlled. VSS afeb Abd soft, non-tender. Fundus firm, below umbilicus. Incision D&I without erythema or induration. Left side of rash completely resolved, the remaineder much improved. A/P Stable. Plan DC home today. Planning Nexplanon for contraception at postop visit next week. Objective - Vital Signs/Intake & Output Vital Signs: Vital Signs x48h Temp Pulse Resp BP Pulse Ox 03/21/20 04:10 98.4 F 84 18 116/58 L 98 Intake & Output: Intake & Output 03/18/20 03/19/20 03/20/20 03/21/20 23:59 23:59 23:59 23:59 Intake Total 4136.667 980 Output Total 1750 985 Balance 2386.667 -5 - Lab Results Fish Bones: 03/19/20 06:15
[2020-03-21] MEDS: CLOTRIMAZOLE/BETAMETHASONE 45 GM TUBE TOP SCH (08:00)
[2020-03-21 08:22] VITALS: BP 133/77
[2020-03-21] MEDS: oxyCODONE 5 MG TABLET PO PRN (15:18)
== END 2020-03-21 16:00 | disposition home or self-care (01) | DRG 787 ==
LOC: WFO 08:13 → FBP 08:17 → WFO 10:08 → OBSVTOIN 23:51 → FBP 03-18 10:50
PROVIDERS: ADMIT Obstetrics & Gynecology; ATTEND Obstetrics & Gynecology
PROC: 0U7C7ZZ Dilation of Cervix, Via Natural or Artificial Opening (ICD-10-PCS; 2020-03-17)
PROC: 10D00Z1 Extraction of Products of Conception, Low, Open Approach (ICD-10-PCS; principal; 2020-03-18 10:45)
DX: O99.214 Obesity complicating childbirth (principal); O98.83 Other maternal infectious and parasitic diseases complicating the puerperium; O99.03 Anemia complicating the puerperium; D50.9 Iron deficiency anemia, unspecified; E66.01 Morbid (severe) obesity due to excess calories; B37.2 Candidiasis of skin and nail; O62.1 Secondary uterine inertia; O43.123 Velamentous insertion of umbilical cord, third trimester; O99.824 Streptococcus B carrier state complicating childbirth; Z37.0 Single live birth; O90.89 Other complications of the puerperium, not elsewhere classified; K59.00 Constipation, unspecified; Z3A.39 39 weeks gestation of pregnancy
CPT/HCPCS: 36415; 85018; 85025; 86850; 86900; 86901; A9270; G0378; J0131; J1650; J2765; J2795; J7120; 85027

== ENCOUNTER 2021-03-12 23:20 | Emergency (ER) | payer OTHER ==
--- NOTE | 2021-03-13 00:30 | ED Physician Documentation ---
PD HPI LOWER EXT INJURY - Stated complaint Stated Complaint: R ANKLE PX - Chief complaint Chief Complaint: Ext Problem - History obtained from History obtained from: Patient - History of Present Illness PD HPI LOW EXT INJURY LOCATION: Right, Ankle Type of injury: Twist Where injury occurred: Home Timing - onset: Enter time (18:00), Today Timing - details: Abrupt onset Pain level now: 2 Improved by: Rest Worsened by: Moving, Palpating Associated symptoms: No: Weakness, Numbness Recently seen: Not recently seen - Additional information Additional information: slipped at approximately 6 PM while walking in her driveway, causing twisting injury to right ankle, c/o right ankle pain. Able to bear minimal weight due to pain with attempts to do so. She denies other injury. She did not fall to ground (was caught by standing next to her when she slipped). 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 : None HEENT: None Psych: Depression Musculoskeletal: None Derm: None - Past Surgical History Past Surgical History: Yes General: Cholecystectomy /BAR WAITER/WAITRESS: section - Present Medications Home Medications: Ambulatory Orders Medication Instructions Recorded Confirmed FLUoxetine [PROzac] 20 mg PO HS #60 capsule 03/20/20 03/12/21 - Allergies Allergies/Adverse Reactions: Allergies Allergy/AdvReac Type Severity Reaction Status Date / Time No Known Drug Allergies Allergy Verified 03/12/21 23:36 - Social History Does the pt smoke?: No Smoking Status: Never smoker Does the pt drink ETOH?: No Does the pt have substance abuse?: No - Immunizations Immunizations are current?: Yes - POLST Patient has POLST: No PD ED PE NORMAL - Vitals Vital signs reviewed: Yes - General General: Alert and oriented X 3, No acute distress, Well developed/nourished - Extremities Extremities: No edema - Neuro Neuro: No motor deficit, No sensory deficit PD ED PE EXPANDED - Extremities Extremities: Tenderness (midline dorsal surface midfoot. no tenderness of medial nor lateral malleoli), Limited ROM (plantarflexion limited due to pain with this movement), Pedal Pulses Present, Sensory intact, Vascular intact. No: Swelling, Bruising Results - Vitals Vitals: Vital Signs - 24 hr 03/12/21 03/13/21 23:34 01:55 Temperature 36.1 C L Heart Rate 101 H 65 Respiratory 16 16 Rate Blood Pressure 148/96 H 142/91 H O2 Saturation 99 99 Oxygen O2 Source Room air - Rads (name of study) right foot xrays Radiology: Prelim report reviewed, See rad report PD MEDICAL DECISION MAKING - ED course Complexity details: reviewed results, re-evaluated patient, considered differential, d/w patient ED course: sustained right ankle twisting injury and although she c/o right ankle pain, her tenderness is limited to the dorsal surface of mid-foot with no tenderness of lateral nor medial malleoli; thus xrays limited to imaging of foot. xrays do not show evidence of acute injury. rufino wrap placed and given crutches to minimize weight-bearing Departure - Departure Disposition: 01 Home, Self Care Clinical Impression: Right foot sprain Qualifiers: Encounter type: initial encounter Qualified Code(s): S93.601A - Unspecified sprain of right foot, initial encounter Condition: Good Instructions: ED Sprain Foot Follow-Up: BERNARDO CORMIER ARNP [Primary Care Provider] - (4-5 days if not improving ) Discharge Date/Time: 03/13/21 01:55
[2021-03-13 02:12] VITALS: BP 142/91
--- NOTE | 2021-03-13 08:47 | XRAY Report ---
PROCEDURE: Foot 3 View RT INDICATIONS: twisting injury, tenderness midline midfoot TECHNIQUE: 3 views of the foot were acquired. COMPARISON: None FINDINGS: Bones: No fractures or dislocations. No suspicious bony lesions. Soft tissues: No tibiotalar joint effusion. Achilles tendon appears normal. Small plantar calcanea l spur. IMPRESSION: No acute osseous abnormality. Agree with preliminary report. Reviewed by: Gerardo Oakley DO on 03/13/2021 7:45 AM D[facility]IT[facility] Approved by: Gerardo Oakley DO on 03/13/2021 7:45 AM DIMITRIOS Station ID: [id number]
== END 2021-03-13 01:55 | disposition home or self-care (01) ==
LOC: ED 23:20
DX: S93.601A Unspecified sprain of right foot, initial encounter (principal); W18.40XA Slipping, tripping and stumbling without falling, unspecified, initial encounter; Y93.01 Activity, walking, marching and hiking; Y92.007 Garden or yard of unspecified non-institutional (private) residence as the place of occurrence of the external cause
CPT/HCPCS: 99282; 99283

== ENCOUNTER 2022-08-01 22:04 | Emergency (ER) | payer OTHER ==
[2022-08-01 22:24] LABS: BASOPHILS # (AUTO) 0.1 10^3/uL (0.0-0.1); BASOPHILS % (AUTO) 0.4 %; EOSINOPHILS # (AUTO) 0.1 10^3/uL (0.0-0.7); EOSINOPHILS % (AUTO) 0.7 %; HCT - HEMATOCRIT 44.8 % (37.0-47.0); HGB - HEMOGLOBIN 14.8 g/dL (12.0-16.0); LYMPHOCYTES # (AUTO) 3.6 10^3/uL (1.5-3.5); LYMPHOCYTES % (AUTO) 26.3 %; MEAN CORPUSCULAR HEMOGLOBIN 28.5 pg (27.0-31.0); MEAN CORPUSCULAR VOLUME 86.3 fL (81.0-99.0); MEAN PLATELET VOLUME 8.5 fL (7.9-10.8); MONOCYTES # (AUTO) 0.8 10^3/uL (0.0-1.0); MONOCYTES % (AUTO) 5.7 %; NEUTROPHILS # (AUTO) 9.1 10^3/uL (1.5-6.6); NEUTROPHILS % (AUTO) 66.5 %; PLT - PLATELET COUNT 357 10^3/uL (130-450); RED BLOOD COUNT 5.19 10^6/uL (4.20-5.40); RED CELL DISTRIBUTION WIDTH 13.2 % (12.0-15.0); WHITE BLOOD COUNT 13.6 x10^3/uL (4.8-10.8)
[2022-08-01 22:38] LABS: ALBUMIN 4.4 g/dL (3.2-5.5); ALBUMIN/GLOBULIN RATIO 1.3 (1.0-2.2); BILIRUBIN,TOTAL 0.5 mg/dL (0.2-1.0); CALCIUM 9.8 mg/dL (8.5-10.3); CREATININE 0.8 mg/dL (0.4-1.0); POTASSIUM 3.8 mmol/L (3.5-5.0); TOTAL PROTEIN 7.8 g/dL (6.7-8.2)
--- NOTE | 2022-08-01 22:47 | ED Physician Documentation ---
History of Present Illness - Stated complaint Stated Complaint: SOA,CHEST HEAVY - Chief complaint Chief Complaint: Resp - History obtained from History obtained from: Patient - Additonal information Additional information: (26-year-old woman with family history of clotting disorder and personal history of PE diagnosed 1 month ago Dx was on control for time but otherwise without any known provoking factors), currently on Xarelto, presents with shortness of breath since last Monday in addition to left upper back pain radiating to the chest. Patient was told to come in by her doctor. Denies cough, sore throat, fever,leg swelling Review of Systems Ten Systems: 10 systems reviewed and negative Constitutional: denies: Fever, Chills Cardiac: denies: Chest pain / pressure, Palpitations Respiratory: reports: Dyspnea. 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 : None HEENT: None Psych: Depression Musculoskeletal: None Derm: None - Past Surgical History Past Surgical History: Yes General: Cholecystectomy /[employer] MINER: section - Present Medications Home Medications: Ambulatory Orders Medication Instructions Recorded Confirmed FLUoxetine [PROzac] 20 mg PO HS #60 capsule 03/20/20 03/12/21 - Allergies Allergies/Adverse Reactions: Allergies Allergy/AdvReac Type Severity Reaction Status Date / Time No Known Drug Allergies Allergy Verified 08/01/22 22:19 - Social History Does the pt smoke?: No Smoking Status: Never smoker Does the pt drink ETOH?: No Does the pt have substance abuse?: No - Immunizations Immunizations are current?: Yes - POLST Patient has POLST: No PD ED PE NORMAL - Vitals Vital signs reviewed: Yes - General General: Alert and oriented X 3, No acute distress, Well developed/nourished - HEENT HEENT: Atraumatic, PERRL, EOMI - Neck Neck: Supple, no meningeal sign - Cardiac Cardiac: RRR - Respiratory Respiratory: No respiratory distress, Clear bilaterally - Abdomen Abdomen: Non tender, Non distended - Derm Derm: Normal color, Warm and dry - Extremities Extremities: No deformity, No edema - Neuro Neuro: Alert and oriented X 3, No motor deficit, No sensory deficit - Psych Psych: Normal mood, Normal affect Results - Vitals Vitals: Vital Signs - 24 hr 08/01/22 08/01/22 08/01/22 22:07 22:10 22:33 Temperature 36.1 C L 36.5 C Heart Rate 111 H 111 H 108 H Respiratory 20 20 16 Rate Blood Pressure 154/116 H 154/116 H 116/83 H O2 Saturation 100 100 100 08/02/22 00:10 Temperature Heart Rate 99 Respiratory 17 Rate Blood Pressure 118/73 O2 Saturation 100 Oxygen O2 Source Room air - EKG (time done) 2216 Rate: Rate (enter#) (107) Rhythm: Sinus tachycardia [place]: Normal Intervals: Normal NM QRS: Normal Ischemia: Normal ST segments - Labs Labs: Laboratory Tests 08/01/22 08/01/22 08/01/22 22:20 22:20 22:20 WBC 13.6 H RBC 5.19 Hgb 14.8 Hct 44.8 MCV 86.3 MCH 28.5 MCHC 33.0 RDW 13.2 Plt Count 357 MPV 8.5 Neut # (Auto) 9.1 H Lymph # (Auto) 3.6 H [place] # (Auto) 0.8 Eos # (Auto) 0.1 Baso # (Auto) 0.1 Absolute Nucleated RBC 0.00 Nucleated RBC % 0.0 VBG pH VBG pCO2 VBG pO2 VBG HCO3 VBG Total CO2 VBG O2 Saturation VBG Base Excess Sodium 139 Potassium 3.8 Chloride 103 Carbon Dioxide 27 Anion Gap 9.0 BUN 10 Creatinine 0.8 Estimated GFR (MDRD) 85 L Glucose 109 H Calcium 9.8 Total Bilirubin 0.5 AST 25 ALT 34 Alkaline Phosphatase 84 Troponin I High Sens < 2.3 L B-Natriuretic Peptide Total Protein 7.8 Albumin 4.4 Globulin 3.4 Albumin/Globulin Ratio 1.3 Lipase 38 08/01/22 08/01/22 22:20 23:10 WBC RBC Hgb Hct MCV MCH MCHC RDW Plt Count MPV Neut # (Auto) Lymph # (Auto) [place] # (Auto) Eos # (Auto) Baso # (Auto) Absolute Nucleated RBC Nucleated RBC % VBG pH 7.415 H VBG pCO2 43.7 VBG pO2 37.1 VBG HCO3 27.4 VBG Total CO2 28.7 VBG O2 Saturation 72.9 VBG Base Excess 2.4 H Sodium Potassium Chloride Carbon Dioxide Anion Gap BUN Creatinine Estimated GFR (MDRD) Glucose Calcium Total Bilirubin AST ALT Alkaline Phosphatase Troponin I High Sens B-Natriuretic Peptide 45 Total Protein Albumin Globulin Albumin/Globulin Ratio Lipase PD MEDICAL DECISION MAKING - ED course ED course: Patient well appearing upon my reexamination with HR 95. labwork, ekg, cxr noncontributory. 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 return precautions given. Departure - Departure Disposition: Home, Self Care Clinical Impression: Shortness of breath, Back pain Condition: Good Instructions: Embolism Pulmonary Dc Comments: You were seen in the emergency department for evaluation of shortness of breath. You are already on the appropriate medication for pulmonary embolism and should continue with your Xarelto. Return to the emergency department if you cough up blood, have any new or worsening symptoms or other concerns. Please follow-up with your primary doctor and cargo service agent.
[2022-08-01 23:16] LABS: VBG PCO2 43.7 mmHg (41-51); VBG PH 7.415 (7.31-7.41)
[2022-08-01 23:17] LABS: VBG BASE EXCESS 2.4 mmol/L (-2 - +2); VBG HCO3 27.4 mmol/L (23-28); VBG OXYGEN SATURATION 72.9 % (60-80); VBG PO2 37.1 mmHg (25-47); VBG TOTAL CO2 28.7 mmol/L (24-29)
--- NOTE | 2022-08-01 23:35 | XRAY Report ---
PROCEDURE: Chest 1 View X-Ray INDICATIONS: Chest pain TECHNIQUE: One view of the chest was acquired. COMPARISON: None. FINDINGS: Surgical changes and devices: None. Lungs and pleura: No pleural effusions or pneumothorax. Lungs are clear. Mediastinum: Mediastinal contours appear normal. Heart size is normal. Bones and chest wall: No suspicious bony lesions. Overlying soft tissues appear unremarkable. IMPRESSION: 1. No acute cardiopulmonary disease. Reviewed by: Pj Arce MD on 08/01/2022 11:33 PM PDT Approved by: Pj Arce MD on 08/01/2022 11:33 PM PDT Station ID: [id number]
[2022-08-02 01:06] VITALS: BP 118/71
== END 2022-08-02 01:05 | disposition home or self-care (01) ==
LOC: ED 22:04
DX: R06.02 Shortness of breath (principal); M54.9 Dorsalgia, unspecified; Z86.711 Personal history of pulmonary embolism; Z79.01 Long term (current) use of anticoagulants
CPT/HCPCS: 36415; 80053; 82803; 83690; 83880; 84484; 85025; 93005; 99284